=== PATIENT | male | born 1995 | race African-American/Black ===

== ENCOUNTER 2025-01-20 15:10 | Emergency (ER) | payer SELFPAY ==
[~2025-01-20] VITALS: Ht 172.7 cm; Wt 70.0 kg
[2025-01-20 15:19] VITALS: O2SAT 100
[2025-01-20 16:05] LABS: COLOR URINE YELLOW (YELLOW); GLUCOSE URINE NEGATIVE (NEGATIVE); KETONES URINE TRACE (NEGATIVE); LEUKOCYTE ESTERASE URINE 2+ (NEGATIVE); NITRITE URINE NEGATIVE (NEGATIVE); OCCULT BLOOD URINE NEGATIVE (NEGATIVE); PH URINE 6.5 (4.5-8.0); PROTEIN URINE NEGATIVE (NEGATIVE); SPECIFIC GRAVITY URINE 1.021 (1.005-1.030); UROBILINOGEN URINE 1.0 E.U./dL (0.2-1.0)
[2025-01-20 16:29] LABS: CLARITY URINE SL HAZY (CLEAR)
[2025-01-20] MEDS: CEFTRIAXONE SODIUM 500MG VIAL IM ONE (16:40)
[2025-01-20 16:41] LABS: RBC URINE NONE SEEN /hpf (0-2)
[2025-01-20 16:42] LABS: BACTERIA URINE TRACE; SQUAMOUS EPITHELIAL CELL URINE RARE /lpf (RARE/1+)
[2025-01-20] MEDS ORDERED: DOXY100T28 MT (16:50)
[2025-01-20] MEDS ORDERED: CEPH500T MT (17:04)
[2025-01-20 17:28] VITALS: BP 118/70; PULSE 75; RESP 15; TEMP 36.7; O2SAT 100
[2025-01-24 08:08] LABS: CHLAMYDIA TRACHOMATIS NAA Negative (Negative); NEISSERIA GONORRHOEAE NAA Negative (Negative)
== END 2025-01-20 17:29 | disposition home or self-care (01) ==
LOC: ER 15:10
DX: N48.89 Other specified disorders of penis (principal)
CPT/HCPCS: 99283; 87491; 87591; 81003; 96372; J0696

== ENCOUNTER 2025-02-02 15:41 | Emergency (ER) | payer SELFPAY ==
[~2025-02-02] VITALS: Ht 172.7 cm; Wt 70.0 kg
[~2025-02-02 15:41] MED LIST: CEPH500T MT; DOXY100T28 MT
[2025-02-02 16:00] VITALS: O2SAT 98
[2025-02-02 17:45] LABS: CLARITY URINE CLEAR (CLEAR); COLOR URINE YELLOW (YELLOW); GLUCOSE URINE NEGATIVE (NEGATIVE); KETONES URINE TRACE (NEGATIVE); LEUKOCYTE ESTERASE URINE 1+ (NEGATIVE); NITRITE URINE NEGATIVE (NEGATIVE); OCCULT BLOOD URINE NEGATIVE (NEGATIVE); PH URINE 6.0 (4.5-8.0); PROTEIN URINE TRACE (NEGATIVE); SPECIFIC GRAVITY URINE 1.025 (1.005-1.030); UROBILINOGEN URINE 1.0 E.U./dL (0.2-1.0)
[2025-02-02 17:57] LABS: BACTERIA URINE TRACE; RBC URINE NONE SEEN /hpf (0-2); SQUAMOUS EPITHELIAL CELL URINE FEW /lpf (RARE/1+)
[2025-02-02] MEDS ORDERED: PHEN-910 MT (18:17)
[2025-02-02] MEDS ORDERED: CEFP200T13 MT (18:17)
[2025-02-02 18:31] VITALS: BP 115/75; PULSE 82; RESP 17; TEMP 36.7; O2SAT 98
== END 2025-02-02 18:31 | disposition home or self-care (01) ==
LOC: ER 15:41
DX: N39.0 Urinary tract infection, site not specified (principal); Z79.899 Other long term (current) drug therapy
CPT/HCPCS: 81003; 99283